=== PATIENT | female | born 1985 | race Caucasian/White ===

== ENCOUNTER 2016-09-30 21:15 | Emergency (ER) | payer OTHER ==
[~2016-09-30] VITALS: Ht 165.1 cm; Wt 79.4 kg
--- NOTE | 2016-09-30 21:29 | NUR ---
PT A/OX4 BREATHING EFFORTLESSLY ON ROOM AIR PT STATES SHE HAS BEEN HVAING HORRIBLE ABD PAIN THAT RADIATES TO HER BACK X 1 DAY AND STATES SHE HAS VOMITED 9 TIMES TODAY BUT DENEIS DIARRHEA, IV PLACED LABS DRAWN, URINE COLLECTED, PT IN GOWN ON MONITOR, MADE AWARE WILL CONTINUE TO MONTIOR.
[2016-09-30 21:32] LABS: BASOPHILS % (AUTO) 0.2 % (0.0-2.0); EOSINOPHILS % (AUTO) 0.3 % (0.0-6.0); HEMATOCRIT 43 % (33-45); HEMOGLOBIN 14.1 g/dL (11.5-14.8); LYMPHOCYTES % (AUTO) 6.9 % (20.0-44.0); MEAN CORPUSCULAR HEMOGLOBIN 28 PG (26.0-33.0); MEAN CORPUSCULAR HGB CONC 33 g/dl (31.0-36.0); MEAN CORPUSCULAR VOLUME 85 fL (82-100); MONOCYTES # (AUTO) 0.2 /CMM (0.1-1.30); MONOCYTES % (AUTO) 1.5 % (2.0-12.0); NEUTROPHILS # (AUTO) 13.6 /CMM (1.8-8.9); NEUTROPHILS % (AUTO) 91.1 % (43.0-81.0); PLATELET COUNT (AUTO) 251 /CMM (150-450); RED BLOOD CELL COUNT(AUTO) 5.01 MIL/uL (4.0-5.2); WHITE BLOOD COUNT (AUTO) 14.8 K/uL (4.3-11.0)
[2016-09-30 21:36] LABS: APPEARANCE,URINE Clear (CLEAR); BILIRUBIN,URINE Negative (NEGATIVE); BLOOD, URINE Negative Ery/uL (NEGATIVE); COLOR,URINE Yellow (YELLOW); KETONES,URINE 80 (NEGATIVE); LEUKOCYTE ESTERASE ,URINE Trace (NEGATIVE); NITRITE, URINE Negative (NEGATIVE); PROTEIN,URINE 30 mg/dl (NEGATIVE); UGLUCOSE Negative (NEGATIVE); UROBILINOGEN,URINE 0.2 EU/dL (0.2)
[2016-09-30 21:40] LABS: PREGNANCY TEST URINE QUAL NEGATIVE (NEGATIVE)
[2016-09-30 21:43] LABS: CALCIUM, SERUM 8.8 mg/dL (8.5-10.1); CREATININE 0.8 mg/dL (0.6-1.3); POTASSIUM 3.5 mmol/L (3.5-5.1)
[2016-09-30 21:50] LABS: ALBUMIN 4.2 g/dL (3.4-5.0); BILIRUBIN,DIRECT 0.1 mg/dL (0.0-0.2); BILIRUBIN,TOTAL 0.2 mg/dL (0.2-1.0); TOTAL PROTEIN, SERUM 8.2 g/dL (6.4-8.2)
[2016-09-30 22:01] LABS: ADD URINE CULTURE NO; BACTERIA,URINE Few /HPF (None Seen); RBC,URINE 0-2 /HPF (0-2); SQUAMOUS EPITHELIAL CELL,UR Moderate /HPF (None Seen); WBC,URINE 0-2 /HPF (0-3)
[2016-09-30] MEDS ORDERED: IV NS 0.9% 1,000 ML ONE (22:11)
[2016-09-30] MEDS ORDERED: ONDANSETRON HCL/PF 4 MG/2 ML VIAL ONE (22:11)
[2016-09-30] MEDS ORDERED: IV SET PRIMARY 1 EA INFUS.SET MC ONE (22:11)
[2016-09-30] MEDS ORDERED: MORPHINE SULFATE INJ 4 MG/ML DISP.SYRIN ONE (22:11)
[2016-09-30] MEDS ORDERED: ONDANSETRON HCL/PF 4 MG/2 ML VIAL IV ONE (22:30)
[2016-09-30] MEDS ORDERED: MORPHINE SULFATE INJ 2 MG/ML DISP.SYRIN IV ONE (22:30)
[2016-09-30] MEDS ORDERED: IV NS 0.9% 1,000 ML BAG IV ONE (22:30)
--- NOTE | 2016-09-30 22:49 | NUR ---
PT STATES HER PAIN IS BETTER, PT FAMILY IS AT BEDSIDE, MD MADE AWARE WILL CONTINUE TO MONITOR.
--- NOTE | 2016-09-30 23:40 | NUR ---
IV removed. Catheter intact and site benign. Pressure and 4x4 applied to site. No bleeding noted.Patient discharged to home in stable condition. Written and verbal after care instructions given. Patient verbalizes understanding of instruction.
[2016-09-30 23:42] VITALS: BP 130/86
== END 2016-09-30 23:42 | disposition home or self-care (01) ==
LOC: ER 21:17
DX: K21.9 Gastro-esophageal reflux disease without esophagitis (principal)
CPT/HCPCS: 36415; 80048-TC; 80076-TC; 81000-TC; 83690-TC; 84703-TC; 85025-TC; A4606; J2270; J2405; J7030; Z7610

== ENCOUNTER 2016-10-02 03:12 | Emergency (ER) | payer OTHER ==
[~2016-10-02] VITALS: Ht 172.7 cm; Wt 77.1 kg
--- NOTE | 2016-10-02 03:20 | NUR ---
To bed 6 a 31 yo female bibra from home with c/o of epigastric sharp pain radiating to back at 10/10 starting wednesday. Patient also reports n/v. Aferbrile. VSS, Skin warm and dry. Comfort measures initiated. Gowned patient. Awaiting for er md palomares.
[2016-10-02] MEDS ORDERED: MAG HYDROX/AL HYDROX/SIMETH 30 ML UDC ONE (03:25)
[2016-10-02] MEDS ORDERED: LIDOCAINE VISCOUS 2% UD 15 ML UDC ONE (03:25)
[2016-10-02] MEDS: LIDOCAINE VISCOUS 2% UD 15 ML UDC MM ONE (03:30)
[2016-10-02] MEDS: MAG HYDROX/AL HYDROX/SIMETH 30 ML UDC PO ONE (03:30)
--- NOTE | 2016-10-02 03:30 | NUR ---
Medicated patient per Dr Montalvo's orders.
--- NOTE | 2016-10-02 04:12 | NUR ---
Dr Montalvo at bedside.
[2016-10-02] MEDS ORDERED: MORPHINE SULFATE INJ 2 MG/ML DISP.SYRIN ONE (04:14)
[2016-10-02] MEDS: MORPHINE SULFATE INJ 2 MG/ML DISP.SYRIN IM ONE (04:20)
--- NOTE | 2016-10-02 05:00 | NUR ---
Patient discharged to home in stable condition. Written and verbal after care instructions given. Patient verbalizes understanding of instruction. Patient is ambulatory with a steady gait.
[2016-10-02 05:06] VITALS: BP 138/92
== END 2016-10-02 05:00 | disposition home or self-care (01) ==
LOC: ER 03:14
DX: K29.70 Gastritis, unspecified, without bleeding (principal)
CPT/HCPCS: 96372; 99283; A4606; J2270; Z7610